=== PATIENT | male | born 1990 | race Caucasian/White ===

== ENCOUNTER 2018-06-26 12:10 | Inpatient (IN) | payer OTHER ==
[~2018-06-26] VITALS: Ht 167.6 cm; Wt 99.8 kg
--- NOTE | 2018-06-26 15:25 | NUR ---
Pre-Admission assessment Pre-admission assessment performed in the intake department of [facility] [place]. Pt is intoxicated. He is in a wheelchair due to right foot injury and intoxication. He has difficulty answering questions. Pt is disheveled with slurred speech, drooping eyelids, and difficulty sitting still. Dr. Marie in intake department during assessment. Vitals are: B/P 133/92, HR 86, RR 18, O2 sat 98%. Pt transferred to ED for evaluation due to intoxication.
[2018-06-26] MEDS ORDERED: ALPR1TAB7 PO (16:08)
[2018-06-26] MEDS ORDERED: BUPR100T5 PO (16:08)
[2018-06-26] MEDS ORDERED: QUET200T PO (16:08)
--- NOTE | 2018-06-26 20:15 | NUR ---
PRE ADMISSION ASSESSMENT Pt is a 27 y/o male seen at intake, pt arrived from the ED. Pt received K-Dur and EKG during his visit and is now able to answer questions and is A&Ox4. EKG resulted normal, made aware. Pt is here for ETOH, methamphetamine and Xanax. Pt reports drinking 1/2 gallon of vodka daily for 1.5 months, last intake of 1/2 gallon on 06/24/18. Pt also uses methamphetamine orally (in soda or in food) 2.5-3 g daily for 1.5 months, last intake 06/25/18 in the evening. Pt also uses Xanax as prescribed 2 mg TID daily for 2 years, last intake of 2 mg this morning. Pt reports that sometimes he does not use it daily if he does not have money for the prescription. Pt reports PMH of anxiety and depression and NKA. 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 Pt is currently in a wheelchair d/t pain while walking on right foot d/t injury from a fall 4 days prior to admission. Vital signs: BP 129/84, HR 89, 02 97%, T 98.4, Pain 0/10 (9/10 when walking), and RR 18.
--- NOTE | 2018-06-26 20:37 | NUR ---
ADMISSION NOTE Pt arrived on the unit at 2036 for medically supervised withdrawal from ETOH and benzos. Pt was also using methamphetamine orally. Skin and body check completed, no contraband found. Pt has opened laceration/blister on right heel that occurred due to a fall 4 days ago, photo taken and placed in the chart. Feet are bilaterally swollen. Pt is 56 and weighs 220 lbs. Pt provided UDS and blood draw. UDS positive for benzodiazepines and amphetamines. Blood alcohol level=0.0. Initial CIWA 15. Pt presents with anxiety, restlessness, sweats, flushed skin, poor concentration, and disheveled appearance. Pt prefers a wheelchair for ambulation d/t right foot injury, but can ambulate without one. Pt stated, I believe I can walk fine with just a cane. PT evaluation ordered. Pt has some rashes that are not itchy throughout body, pt stated, My skin typically gets like this when I use meth. PEERLA. Respirations even and unlabored, lung sounds clear. Pt reports last BM today. Vital signs: BP: 129/84, RR 18, HR 89, 02 97%, T 98.5, Pain 0/10 (9/10 when he walking d/t injury). Substance Use History: 1. ETOH (Vodka) gallon daily for 1.5 months, last intake of gallon on 06/24/18. Pt reports that he started drinking regularly since 2007. 2. Xanax 2 mg TID as prescribed for 2 years, last intake of 2 mg this morning. Pt reports that he has never used more than prescribed and that he may use it on and off when he cannot afford his prescription. Pt reports that he started using Xanax in 2015 for his anxiety. 3. Methamphetamine (oral) 2.5-3 g daily for 1.5 months, last intake of 3 grams orally in a soda on 06/25/18. Pt reports that he started drinking alcohol and using methamphetamine regularly since 2007 to self medicate the depression. Pt reports that he has not slept in 8 days. Pt reports that he has been to one treatment center, which was 2 months ago at [facility] and does not remember how long he was there for. Pt reports that he has had 5-6 attempts at sobriety and reports that his longest period of sobriety was 1 year in 2014. Pt reports that his typical S/S of withdrawal include the following: shakiness, twitching, sweats, irritability. He reports difficulty staying sober recently and stated, This girl I really liked stopped talking to me and she was my only friendThis put me into a depression and I just said fuck it and wanted to self medicate for my depression. Pt wants to get sober and states, I cant live like this anymoreI want to get my depression under control and I was living in the streets for 3 days and I dont want to be like this. Pt reports that he was staying at a sober living facility in [facility] prior to being homeless, but was using while at the sober house. Pt also reports that all his family members have blocked his number and currently ignore him. Pt reports having no friends and therefore no support system. Pt reports that relationship problems have been his biggest consequence for using. He reports that this time attempting sobriety will be different because he is hoping to take his treatment center more seriously. 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 Pt is full code, regular diet, NKA to food or meds, and on fall/seizure precautions. Pt reports PMH of anxiety, depression, insomnia, and kidney stones (Sep 2017). 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 Pt also has had multiple blackouts from ETOH and stated that he has had 1 OD from Heroin which was accidental and does not remember when. He reported that he has never used heroin on a regular basis and only tried it occasionally in the past. He brought Seroquel 200 mg for insomnia and Xanax from home. Educated pt that controlled substances will not be given back, pt verbalized understanding. Pt reports smoking 1 pack of cigarettes daily and currently does not have a desire to quit. Pt is not a candidate for MRSA, denies being hospitalized or in halfway in the past 30 days. Pt requests the flu and pneumonia vaccines. Pt denies having a PCP. Denies family PMH or hx of substance use. Encouraged pt to be open and honest in his recovery. Oriented pt to room and unit, educated pt about rules and expectations of the unit and how to use the call light.
[2018-06-26] MEDS ORDERED: DIAZEPAM 10 MG TABLET PO PRN (21:45)
[2018-06-26] MEDS ORDERED: THIAMINE HCL 200 MG/2 ML VIAL IM ONE (21:45)
[2018-06-26] MEDS ORDERED: ONDANSETRON ODT 4 MG TAB.RAPDIS SL PRN (21:45)
[2018-06-26] MEDS ORDERED: LORAZEPAM 2 MG/1 ML VIAL IM PRN (21:45)
[2018-06-26] MEDS ORDERED: LOPERAMIDE HCL 2 MG CAPSULE PO PRN ×2 (21:45)
[2018-06-26] MEDS ORDERED: DIAZEPAM 5 MG TABLET PO PRN (21:45)
[2018-06-26] MEDS ORDERED: ONDANSETRON 4 MG/2 ML VIAL IM PRN (21:45)
[2018-06-26 22:10] LABS: BASOPHILS % (AUTO) 0.2 % (0.0-2.0); EOSINOPHILS # (AUTO) 0.3 K/uL (0.0-0.7); EOSINOPHILS % (AUTO) 4.2 % (0.0-7.0); HEMATOCRIT 42.1 % (36.7-47.1); HEMOGLOBIN 14.4 g/dL (12.5-16.3); LYMPHOCYTES # (AUTO) 2.3 K/uL (20.0-40.0); LYMPHOCYTES % (AUTO) 29.3 % (20.5-51.5); MEAN CORPUSCULAR HEMOGLOBIN 31.3 uug (23.8-33.4); MEAN CORPUSCULAR HGB CONC 34 g/dL (32.5-36.3); MEAN CORPUSCULAR VOLUME 91.8 fL (73.0-96.2); MONOCYTES # (AUTO) 0.7 K/uL (2.0-10.0); MONOCYTES % (AUTO) 8.7 % (0.0-11.0); NEUTROPHILS # (AUTO) 4.5 K/uL (1.8-8.9); NEUTROPHILS % (AUTO) 57.6 % (38.5-71.5); PLATELET COUNT (AUTO) 333 K/uL (152-348); RED BLOOD CELL COUNT(AUTO) 4.59 MIL/uL (4.06-5.63); WHITE BLOOD COUNT (AUTO) 7.8 K/uL (3.6-10.2)
[2018-06-26] MEDS ORDERED: QUETIAPINE FUMARATE 200 MG TABLET PO ONE (22:30)
[2018-06-26 22:31] LABS: ETHANOL < 3 MG/DL (0-0)
[2018-06-26 23:01] LABS: THYROID STIMULATING HORMONE 1.571 mIU/mL (0.358-3.740)
[2018-06-26 23:11] LABS: ALANINE AMINOTRANSFERASE 126 U/L (16-63); ALKALINE PHOSPHATASE 59 U/L (50-136); AMYLASE 49 U/L (25-115); ASPARTATE AMINOTRANSFERASE 119 U/L (15-37); BILIRUBIN,TOTAL 0.6 mg/dL (0.2-1.0); CARBON DIOXIDE 26 mmol/L (21-32); CHLORIDE 101 mmol/L (98-107); CREATININE 0.9 mg/dL (0.6-1.3); GLUCOSE 135 mg/dL (74-106); LIPASE 264 U/L (73-393); MAGNESIUM 2.1 mg/dL (1.8-2.4); TOTAL PROTEIN, SERUM 7.2 g/dL (6.4-8.2); UREA NITROGEN, BLOOD 13 mg/dL (7-18)
--- NOTE | 2018-06-26 23:26 | NUR ---
PRN VALIUM 20 MG ADMINISTRATION CIWA 16. Pt presents with anxiety, severe restlessness, tremors, and disorientation to time. Safety measures in place. Call light within reach. Will continue to monitor.
[2018-06-26] MEDS: MULTIVITAMINS,THERAPEUTIC TABLET PO SCH (23:27)
[2018-06-26 23:29] LABS: *AMPHETAMINE, URINE POSITIVE (NEGATIVE); *BARBITURATE, URINE NEGATIVE (NEGATIVE); *CANNABINOID, URINE NEGATIVE (NEGATIVE); *COCCAINE, URINE NEGATIVE (NEGATIVE); *OPIATE, URINE NEGATIVE (NEGATIVE); *PHENCYCLIDINE SCREEN,URINE NEGATIVE (NEGATIVE)
[2018-06-27] VITALS (7 sets, daily range): BP systolic 119–148; BP diastolic 73–96
--- NOTE | 2018-06-27 | NUR ---
CIWA ASSESSMENT CIWA 14. Pt presents with anxiety, severe restlessness, and continues to have disorientation to time. Pt has improvement in anxiety. Safety measures in place. Call light within reach. Will continue to monitor.
[2018-06-27] MEDS ORDERED: POTASSIUM CHLORIDE 20 MEQ TAB.PRT.SR PO ONE ×2 (00:15→20:45)
--- NOTE | 2018-06-27 00:26 | NUR ---
PRN VALIUM REASSESSMENT CIWA 13. Pt presents with anxiety, severe restlessness, and continues to have disorientation to time. Pt has improvement in anxiety. Safety measures in place. Call light within reach. Will continue to monitor.
[2018-06-27] MEDS: DIAZEPAM 10 MG TABLET PO PRN ×2 (00:59→17:17)
--- NOTE | 2018-06-27 00:59 | NUR ---
PRN VALIUM 10 MG ADMINISTRATION CIWA 15. Pt presents with auditory hallucinations. Pt is mumbling and states, "I hear a miriam telling me random stuff and he is pushing on my neck." Pt also presents with restlessness and disorientation to time. Safety measures in place. Call light within reach. Will continue to monitor.
--- NOTE | 2018-06-27 01:00 | NUR ---
1:1 SITTER Pt now has 1:1 for safety d/t auditory hallucinations and severe restlessness.
[2018-06-27] MEDS: diphenhydrAMINE 50 MG CAPSULE PO PRN ×2 (01:59→23:39)
--- NOTE | 2018-06-27 01:59 | NUR ---
PRN VALIUM REASSESSMENT AND PRN BENADRYL ADMINISTRATION CIWA 13. Pt denies having auditory hallucinations. Pt continues to have restlessness and disorientation to time. Pt states, "I know I just need to sleep." Pt requests sleep aid. Safety measures in place. 1:1 sitter at bedside. Will continue to monitor.
--- NOTE | 2018-06-27 02:59 | NUR ---
MAGY MITCHELLRYL REASSESSMENT Pt remains awake, restless in bed. Pt is mumbling while tossing and turning in bed. Safety measures in place. 1:1 sitter at bedside. Will continue to monitor.
--- NOTE | 2018-06-27 04:00 | NUR ---
CIWA DEFERRED Pt laying in bed with eyes closed, CIWA deferred, to be assessed when pt is awake per orders. Respirations even and unlabored. Safety measures in place. 1:1 at bedside. Will continue to monitor.
--- NOTE | 2018-06-27 07:18 | NUR ---
END OF SHIFT Pt is a 27 y/o male admitted on 06/26/18 for ETOH and benzo withdrawal. Pt was also using methamphetamine daily. Pt was placed on a 5 day Valium taper to start today and had PRN Valium available. Pt presented with anxiety, restlessness, sweats, flushed skin, elevated HR, difficulty falling asleep, poor concentration, poor memory recall, poor eye contact, slumped posture, odorous, unkempt room, and disheveled appearance. Pt is on a 1:1 for safety. K+ 3.0, replaced with 40 meq K-Dur. Scheduled medications and PRN Valium 20 mg, Valium 10 mg, and Benadryl, effective in S/S of withdrawal AEB CIWA 16 lowered to CIWA 13 during shift. Pt slept 4 hours. Intake 1000 ml, void x 2, stool x 0. Safety measures in place. 1:1 sitter at bedside. Pts needs have been met. Endorsed to day shift nurse.
--- NOTE | 2018-06-27 07:25 | NUR ---
Start Of Shift Report received from manager shift nurse. Pt is a 27 y/o male admitted on 06/26/18 for ETOH and benzo withdrawal. Per manager shift nurse pt's last CIWA was 13. Pt is starting his 5 day Valium taper today. Upon start of shift pt noted laying in his bed with his eyes closed resting, breathing even and unlabored. When greeted pt stated " Im feeling terrible can I please have my morning medications so I can feel better". Pt's room appears unorganized and messy, pt has water, soda bottles and candy wraps thrown around the room, there is candy all over the floor. Pt appears anxious, sweaty and flushed. During assessment, pt is AOx3. Lung sounds clear bilaterally. Radial pulse is regular and non-bounding. Abdomen soft and non-tender. Pt has a Physical therapy evaluation today. Pt's skin is warm pt has a blister on his leg which makes it a little difficult to ambulate so pt uses wheelchair to ambulate around, pt is on a 1:1 with a WATCH MECHANIC for safety due to unsteady gait. Pt denies any pain at the moment. Encouraged pt to drink plenty of fluids to keep hydrated and help the detox process. Pt received PRN Valium 20mg and another Valium 10mg as well as a Benadryl 50mg for withdrawal symptoms and insomnia which were effective per manager shift nurse. Pt slept a total of 9 hours last night. Bed in lowest position. Side rails up x2. Call light functioning and within reach. All needs attended and met. Will continue to monitor.
[2018-06-27] MEDS ORDERED: INFLUENZA VACCINE 2018-2019 0.5 ML DISP.SYRIN IM ONE (09:00)
[2018-06-27] MEDS ORDERED: PNEUMOCOCCAL 23-VAL P-SAC VAC 0.5 ML VIAL IM ONE (09:00)
[2018-06-27] MEDS ORDERED: TUBERCULIN,PURIF.PROT.DERIV. 5 TU/0.1 ML TEST ID ONE (09:00)
[2018-06-27] MEDS ORDERED: 5 DAY TAPER VALIUM-SERENITY PROTOCOL PO PRN (09:00)
[2018-06-27] MEDS: MULTIVITAMINS,THERAPEUTIC TABLET PO SCH (09:57)
[2018-06-27] MEDS: DIAZEPAM 10 MG TABLET PO SCH ×3 (09:58→20:07)
[2018-06-27] MEDS: THIAMINE HCL 100 MG TABLET PO SCH (09:58)
[2018-06-27] MEDS: FOLIC ACID 1 MG TABLET PO SCH (09:58)
--- NOTE | 2018-06-27 12:00 | NUR ---
CIWA 14 Pt has diaphoresis, anxiety, yawning, and restlessness. Pt complains of chills runny nose and fatigue. Pt encouraged to drink more fluids to help with detox process. Will continue to monitor, support and encourage according to plan of care.
[2018-06-27 16:10] LABS: BILIRUBIN,TOTAL 0.3 mg/dL (0.2-1.0); CREATININE 0.8 mg/dL (0.6-1.3); POTASSIUM 3.3 mmol/L (3.5-5.1); TOTAL PROTEIN, SERUM 6.1 g/dL (6.4-8.2)
[2018-06-27] MEDS: CLONIDINE HCL 0.1 MG TABLET PO PRN ×2 (17:17→23:39)
[2018-06-27] MEDS: HYDROXYZINE PAMOATE 25 MG CAPSULE PO PRN ×2 (17:17→23:39)
--- NOTE | 2018-06-27 17:17 | NUR ---
PRN Pt c/o feeling anxious, and jittery, upon assessment pt had a CIWA score of 13 pt received PRN Valium 10mg per MD scale, clonidine0.1mg and Vistaril 50mg, will continue to monitor pt.
--- NOTE | 2018-06-27 18:17 | NUR ---
PRN reassessment Pt reported a decrease in anxiety and jitteriness, stated that his symptoms have subsided and that he is feeling much better than before, all needs met will continue to monitor and provide support.
--- NOTE | 2018-06-27 19:01 | NUR ---
End of shift Report given to night stocker nurse plan of care followed vital signs monitored closely Q4H. Withdrawal symptoms were closely monitored, medication given as scheduled. Initial CIWA 14. Pt encouraged adequate PO fluid intake as tolerated. Pt presented with sweats, flushed face, anxiety some agitation and yawning during the day. Pt received scheduled taper medication as ordered. Pt received PRN Clonidine 0.1mg Valium 10mg Vistaril 50mg for anxiety and withdrawal symptoms medications were effective. Last CIWA 13. Pt reported that the taper medications have been working well at controlling the withdrawal symptoms. Pt ate all of the meals, pt attended all groups and activities to learn new coping skills to prevent relapse. Pt denied any SI/HI. All safety measures in place, bed in lowest locked position, call light within reach. All needs met and attended.
--- NOTE | 2018-06-27 19:30 | NUR ---
Start of Shift Patient Received. Per endorsement, patient remains on 1:1 for safety. He continues on a 5 day Valium taper. Patient received PRN Vistaril and Clonidine with mediations noted to be effective. Potassium continues to be monitored. PT evaluation still pending. Last noted CIWA 13. Upon rounds patient is noted awake, alert and verbally responsive. Patient reports intermittent anxiety, agitation, increased sweats and chills, light sensitivity, and vivid dreams. Patient states I just want my Seroquel to go to bed. Explained to patient of routine medications with patient verbalizing understanding. All needs attended to promptly. Will continue plan of care as ordered.
[2018-06-27] MEDS: QUETIAPINE FUMARATE 200 MG TABLET PO SCH (20:06)
[2018-06-27] MEDS: IBUPROFEN 600 MG TABLET PO PRN (20:07)
--- NOTE | 2018-06-27 20:12 | NUR ---
CIWA Assessment/PRN Medication Administration patient is noted verbalizing increased pain to right ankle 5/10. PRN Motrin administered with routine medication. Patient is also noted with increased anxiety, restlessness, agitation, increased chills and sweats, light sensitivity, and tremulous to touch. Medications administered. Upon exiting the room patient was noted to verbalize "can I get my meds?" Reoriented patient and patient was noted to verbalize "oh ok." 1:1 remains. Will continue to monitor.
--- NOTE | 2018-06-27 21:15 | NUR ---
PRN medication Reassessment Patient is noted in bed with eyes closed. Breathing even and non labored. Patient received PRN Motrin for pain to right heel with medication noted to be effective. Will continue to monitor.
--- NOTE | 2018-06-27 23:00 | NUR ---
BEHAVIOR NOTE Per KNOT TIER, pt became upset, angry, agitated and stated " I don't want you in here! I can't fall asleep!" Pt came out of room, walked to nurses station and angrily stated " I don't want someone in my room, I can't fucking fall asleep with him in here! It's not cool!" KNOT TIER traffic personnel supervisor, primary nurse and charge nurse educated pt multiple times regarding reason for 1:1 sitter and concern for his safety. Pt stated " I'm fine! I can walk on my own! I just don't want anyone in here, and if you guys are going to put someone in here, I'll just leave." Pt was noted with steady gait. Pt denied any visual or auditory hallucinations. Will monitor closely.
--- NOTE | 2018-06-27 23:40 | NUR ---
PRN Medication Administration Patient is noted awake. He is noted with increased anxiety, agiation, verbalizing increased chills and sweats, restlessness, and inability of falling back to sleep. PRN Vistaril, Clonidine, and Benadryl. Will continue to monitor.
[2018-06-28 00:33] VITALS: BP 117/69
--- NOTE | 2018-06-28 00:39 | NUR ---
PRN Medication Reassessment Patient is noted in his room, upon entering room patient is verbally responsive and is noted to be easily agitated. Patient is able to verbalize "Im trying to fall asleep." PRN Clonidine, Vistaril and Benadryl noted not effective at the moment. Will continue to monitor.
[2018-06-28] MEDS ORDERED: DIAZEPAM 10 MG TABLET PO ONE (01:15)
--- NOTE | 2018-06-28 01:32 | NUR ---
PRN Medication Administration Patient noted to be very restless in bed, frequently shifting in bed, verbalizing intermittent chills and sweats, increased anxiety, and agitation. patient verbalizes "im so frustrated. i just feel miserable." CIWA noted to be 19. Relayed to CN and MD with one time dose of Valium 20mg. Will continue to monitor.
--- NOTE | 2018-06-28 02:30 | NUR ---
PRN Medication Reassessment Patient is noted in bed with eyes closed. Breathing even and non labored. No restlessness or discomfort noted. PRN Valium 20mg noted to be effective. Will continue to monitor.
[2018-06-28 04:30] VITALS: BP 122/83
--- NOTE | 2018-06-28 04:33 | NUR ---
CIWA Assessment patient noted awake, in the hallway, and requesting a drink from the snack room. He is noted to be easily agitated. requested for patient to put on a shirt and shoes and patient verbalized "you tell me that all the time. You dont need to tell me." During vitals patient was noted to easily fall back asleep. Will continue to monitor.
--- NOTE | 2018-06-28 07:09 | NUR ---
End of Shift Patient is noted in bed with eyes closed. Breathing even and non labored. Patient remains on 1:1 for safety. He continues on a 5 day Valium taper. Patient received PRN Clonidine, Vistaril, Benadryl, one time dose of Valium 20mg. Patient noted to sleep in intervals and noted to be non compliant with unit rules. KDUR 40 meq administered as per order. Potassium continues to be monitored. PT evaluation still pending. Last noted CIWA 8. No auditory or visual hallucinations noted or verbalized during shift. Patient noted to sleep a total of 5 hours. All needs attended to promptly. Will endorse to continue plan of care as ordered.
[2018-06-28 07:49] LABS: ALANINE AMINOTRANSFERASE 88 U/L (16-63); ALKALINE PHOSPHATASE 53 U/L (50-136); ASPARTATE AMINOTRANSFERASE 43 U/L (15-37); BILIRUBIN,TOTAL 0.2 mg/dL (0.2-1.0); CARBON DIOXIDE 26 mmol/L (21-32); CHLORIDE 107 mmol/L (98-107); CREATININE 0.7 mg/dL (0.6-1.3); GLUCOSE 135 mg/dL (74-106); MAGNESIUM 1.7 mg/dL (1.8-2.4); POTASSIUM 3.1 mmol/L (3.5-5.1); TOTAL PROTEIN, SERUM 6.2 g/dL (6.4-8.2); UREA NITROGEN, BLOOD 5 mg/dL (7-18)
[2018-06-28 08:00] VITALS: BP 149/98
--- NOTE | 2018-06-28 08:00 | NUR ---
START OF SHIFT CIWA ASSESSMENT Pt 27 y/o male admitted for etoh and benzo withdrawal. Pt received in room on bed with eyes closed resting, but arousable to name. Pt alert and oriented to name,place, and time. Perrla. Skin warm and moist to touch. Respirations even and unlabored. Appears disheveled and unkempt. Malodorous. Clothes, food wrappings, and empty drink bottles scattered throughout the room. Dirt under fingernails of both hands noted. Food observed on pt's shirt and pants. Encouraged to maintain hygiene. ciwa=12@0800. Anxious and restless. Pressured speech and fidgety. Irritable and agitated. Bilateral hand tremors noted. Complaints of general discomfort. Pt with 1:1 to monitor for safety. Last ciwa=8@2200. Pt is on a 5 day valium taper and is on day 2. Bed on lowest position with side rails x2 up for safety. Call light within reach.
[2018-06-28] MEDS: MULTIVITAMINS,THERAPEUTIC TABLET PO SCH (09:07)
[2018-06-28] MEDS: THIAMINE HCL 100 MG TABLET PO SCH (09:07)
[2018-06-28] MEDS: HYDROXYZINE PAMOATE 25 MG CAPSULE PO PRN ×3 (09:07→20:49)
[2018-06-28] MEDS: CLONIDINE HCL 0.1 MG TABLET PO PRN ×3 (09:07→20:49)
[2018-06-28] MEDS: DIAZEPAM 5 MG TABLET PO SCH ×4 (09:07→20:50)
[2018-06-28] MEDS: FOLIC ACID 1 MG TABLET PO SCH (09:07)
--- NOTE | 2018-06-28 09:10 | NUR ---
PRN CATAPRES VISTARIL Pt very anxious and restless. Catapres po prn per MD order given and tolerated well. Vistaril po prn per MD order given .
--- NOTE | 2018-06-28 10:10 | NUR ---
PRN CATAPRES VISTARIL EVAL Pt states medications effective for anxiety. Pt observed laying on bed in room.
--- NOTE | 2018-06-28 11:02 | NUR ---
therapist prompted client to attend group therapy.
[2018-06-28 12:00] VITALS: BP 138/88
--- NOTE | 2018-06-28 12:00 | NUR ---
CIWA ASSESSMENT ciwa=12. Anxious and restless. Pressured speech noted. Bilateral hand tremors noted. Irritable and agitated. Complaints of generalized discomfort.
[2018-06-28] MEDS ORDERED: MAGNESIUM OXIDE 400 MG TABLET PO ONE (12:15)
[2018-06-28] MEDS ORDERED: POTASSIUM CHLORIDE 20 MEQ TAB.PRT.SR PO ONE (12:15)
--- NOTE | 2018-06-28 14:38 | NUR ---
PRN IMMODIUM Pt with 1 episode of loose stool. Immodium po prn per MD order given and tolerated well.
--- NOTE | 2018-06-28 15:38 | NUR ---
PRN IMMODIUM Pt denies any loose stool episode.
[2018-06-28 16:00] VITALS: BP 148/95
--- NOTE | 2018-06-28 16:00 | NUR ---
CIWA ASSESSMENT ciwa=11. Bilateral hand tremors noted. Irritable and agitated. Anxious. Pressured speech noted. Complaints of generalized discomfort.
[2018-06-28] MEDS: BACLOFEN 10 MG TABLET PO SCH (16:15)
--- NOTE | 2018-06-28 16:21 | NUR ---
PRN CATAPRES VISTARIL Pt agitated. Raising voice at staff," I don't want anyone in my room unless it's with the nurse. You got that!? No one comes here without the doctor that can give me back my room. I want my room back now!". Catapres po prn per MD order given. Vistaril po prn per MD order given.
--- NOTE | 2018-06-28 18:21 | NUR ---
PRN CATAPRES VISTARIL EVAL Pt still with periods of irritability. Hard to redirect at times.
--- NOTE | 2018-06-28 18:36 | NUR ---
END OF SHIFT Pt 27 y/o male admitted for etoh and benzo withdrawal. Pt alert and oriented to name, place, and time. Perrla. Skin warm and moist to touch. Respirations even and unlabored. Appears disheveled and unkempt. Dirt under fingernails of both hands noted. Malodorous. Clothes, food wrappings and food, and empty drink bottles scattered throughout the room and floors. Encouraged to maintain hygiene. Anxious and restless. Pressured speech. Periods of irritability and agitation. Pt needed redirection a few times today.Not able to lay still. Complaints of generalized discomfort. Isolative to room with no peer interaction and with no motivation for self care. Pt did not attend group activity. Ciwa=11 @1600. Pt is a 5 day valium taper and is on day 2. Bed on lowest position with side rails x2 up for safety. Call light within reach.
--- NOTE | 2018-06-28 19:30 | NUR ---
START OF SHIFT Pt is a 27 y/o male admitted on 06/26/18 for benzo and ETOH withdrawal. Pt is a on 5 day Ativan taper, tolerating well. Last CIWA 11. PRN Clonidine, Vistaril, and Imodium was administered during day shift. Upon assessment Pt presents with anxiety, agitation, body aches, tremors, and difficulty falling and staying asleep. Medications due. Safety measures in place. Call light within reach. Will continue to monitor.
[2018-06-28 20:00] VITALS: BP 106/53
--- NOTE | 2018-06-28 20:00 | NUR ---
CIWA 11 Pt presented with anxiety, agitation, tremors, flat affect, and difficulty falling and staying asleep. Safety measures in place. Call light within reach. Will continue to monitor.
[2018-06-28] MEDS: diphenhydrAMINE 50 MG CAPSULE PO PRN (20:49)
--- NOTE | 2018-06-28 20:49 | NUR ---
PRN BENADRYL, CLONIDINE, AND VISTARIL ADMINISTRATION Pt complains of anxiety, agitation, tremors, and difficulty falling and stay asleep. Pt requested PRN medications. PRN medications were administered per order. Safety measures in place. Call light within reach. Will continue to monitor.
[2018-06-28] MEDS: QUETIAPINE FUMARATE 200 MG TABLET PO SCH (20:50)
--- NOTE | 2018-06-28 21:49 | NUR ---
MAGY BENADRYL, CLONIDINE, AND VISTARIL REASSESSMENT Addendum: 06/28/18 at 2227 by GAURI SERRANO RN Pt verbalized a decrease in his anxiety, agitation, and tremors. Pt also stated that he feels very sleepy. Medications noted effective per Pt. Safety measures in place. Call light within reach. Will continue to monitor.
--- NOTE | 2018-06-29 04:00 | NUR ---
CIWA DEFERRED AND VITAL SIGNS REFUSED Patient is noted in bed with eyes closed. Breathing even and non labored. CIWA and vital signs not able to be completed per order. Safety measures in place. Call light within reach. Will continue to monitor.
--- NOTE | 2018-06-29 07:29 | NUR ---
END OF SHIFT Pt is a 27 y/o male admitted on 06/26/18 for benzo and ETOH withdrawal. Pt to continue a 5 day Ativan taper. Pt presented with anxiety, agitation, body aches, tremors, and difficulty falling and staying asleep. PRN Benadryl, Clonidine, and Vistaril administered, effective in S/S of withdrawal as verbalized by Pt. Last CIWA 11. Pt slept 9 hours. Intake 855 ml, void x 3, stool x 0. Safety measures in place. Call light within reach. Pt's needs have been met. Endorsed to day shift.
[2018-06-29 08:00] VITALS: BP 143/101
[2018-06-29] MEDS: FOLIC ACID 1 MG TABLET PO SCH (08:01)
[2018-06-29] MEDS: MULTIVITAMINS,THERAPEUTIC TABLET PO SCH (08:01)
[2018-06-29] MEDS: DIAZEPAM 5 MG TABLET PO SCH ×3 (08:01→20:38)
[2018-06-29] MEDS: BACLOFEN 10 MG TABLET PO SCH ×3 (08:01→16:35)
[2018-06-29] MEDS: CLONIDINE HCL 0.1 MG TABLET PO PRN ×2 (08:01→20:39)
[2018-06-29] MEDS: THIAMINE HCL 100 MG TABLET PO SCH (08:01)
--- NOTE | 2018-06-29 08:05 | NUR ---
START OF SHIFT: Received Pt. A/O X 4. He is disheveled and odorous. He states he feels anxious,restless and irritable. Valium taper in progress to manage s/s of w/d. CIWA 10. BP 143/101 P 108. PRN Clonidine given for elevated BP. Will monitor effectiveness of PRN. Encouraged increased fluids to assist in facilitating detox process. Encouraged group attendance to improve coping skills and prevent relapse.Will continue to monitor and offer support.
[2018-06-29 09:00] VITALS: BP 141/96
--- NOTE | 2018-06-29 09:45 | NUR ---
Therapist prompted client to attend group therapy.
[2018-06-29] MEDS ORDERED: MAGNESIUM OXIDE 400 MG TABLET PO ONE (11:00)
[2018-06-29] MEDS ORDERED: POTASSIUM CHLORIDE 20 MEQ TAB.PRT.SR PO ONE (11:00)
[2018-06-29 12:00] VITALS: BP 144/94
[2018-06-29] MEDS: GABAPENTIN 300 MG CAPSULE PO SCH ×2 (12:17→16:35)
--- NOTE | 2018-06-29 12:30 | NUR ---
CIWA 7 he reports anxiety,restlessness and irritability
[2018-06-29 16:00] VITALS: BP 131/95
--- NOTE | 2018-06-29 19:14 | NUR ---
END OF SHIFT: Pt continues on Valium taper to manage s/s of w/d which include anxiety,restlessness,irritability and agitation.Last CIWA 10. He was compliant with treatment plan. He eats 100% of meals and was compliant with increased fluids. He interacts with peers and attended groups. Will pass shift report to oncoming night nurse.
--- NOTE | 2018-06-29 19:41 | NUR ---
START OF SHIFT NOTE Rcvd report from outgoing nurse. Pt is a 27 y/o male A/O to person, place, time, and purpose. Pt was admitted for medically supervised withdrawal from ETOH and Benzodiazepines. Pt is on day 3of a 5 day Valium taper. Pt has been presenting w/ anxiety, agitation, emotional volatility, irritability, sweats, unkempt and disheveled appearance, and malodorous. Pt rcvd no PRN medications during previous shift. Last CIWA 10 @ 1600. Call light is within reach. Pt will continue to be monitored and needs met.
[2018-06-29 20:01] VITALS: BP 147/101
--- NOTE | 2018-06-29 20:01 | NUR ---
CIWA ASSESSMENT CIWA 16. Pt has been presenting w/ anxiety, agitation, emotional volatility, irritability, sweats, unkempt and disheveled appearance, and malodorous. V/S; T:98.1, P:101, RR:18, SPO2:99, BP:147/101.
[2018-06-29] MEDS: QUETIAPINE FUMARATE 200 MG TABLET PO SCH (20:38)
[2018-06-29] MEDS: diphenhydrAMINE 50 MG CAPSULE PO PRN (20:38)
[2018-06-29] MEDS: HYDROXYZINE PAMOATE 25 MG CAPSULE PO PRN (20:38)
--- NOTE | 2018-06-29 20:38 | NUR ---
PRN BENADRYL, CLONIDINE, AND VISTARIL ADMINISTRATION Benadryl 50mg for sleep, Clonidine 0.1mg and Vistaril 50mg for anxiety were given. Will reassess pt in 1 hr.
--- NOTE | 2018-06-29 21:38 | NUR ---
PRN BENADRYL, CLONIDINE, AND VISTARIL REASSESSMENT Pt states he still can't fall asleep and he still feels awful. Pt appears anxious and agitated. Educated pt on relaxation techniques such as deep breathing, turning off the lights, putting on music, and using imagery. Pt stated he would try. Will continue to monitor pt.
--- NOTE | 2018-06-29 23:30 | NUR ---
NURSING NOTE Pt has been exhibiting med-seeking and manipulative behavior. Pt has also become verbally aggressive towards staff, using profanity and making verbal threats. Pt is requesting an increase to his scheduled tapers. Pt was educated regarding appropriate behvaior and the medication regimen by Primary RN, teletypewriter operator, and [employer] Acls Nurse. Pt's scheduled and PRN medications were administered, however, pt continued to request more sleeping medications even though Seroquel 200mg was given. Pt remained argumentative stating "I dont' want to have to break character and go to an evil place" in an attempt to achieve more medication. Pt given continuous education on nonpharmacological relaxation and sleep methods.
--- NOTE | 2018-06-30 00:05 | NUR ---
CIWA ASSESSMENT CIWA 16. . Pt has been presenting w/ anxiety, agitation, emotional volatility, irritability, insomnia, sweats, unkempt and disheveled appearance, and malodorous. Pt refused V/S.
--- NOTE | 2018-06-30 04:10 | NUR ---
CIWA DEFERRED Pt is in bed w/ his eyes closed. Pt's respirations are unlabored and even.
--- NOTE | 2018-06-30 07:21 | NUR ---
END OF SHIFT NOTE Endorsed pt to oncoming nurse. Pt is a 27 y/o male A/O to person, place, time, and purpose. Pt was admitted for medically supervised withdrawal from ETOH and Benzodiazepines. Pt completed day 3 of a 5 day Valium taper. Pt continued presenting w/ anxiety, agitation, emotional volatility, irritability, insomnia, sweats, unkempt and disheveled appearance, and is malodorous. Pt denies any S/I or H/I. PRN Benadryl for sleep, Clonidine and Vistaril for anxiety were given and noted ineffective. Pts fluid intake was 1182ml and he slept for 6hrs. Last CIWA 16 @ 0000. Call light is within reach.
--- NOTE | 2018-06-30 07:45 | NUR ---
Start of shift Pt is 27 y/o male admitted for medically supervise withdrawal of ETOH. Pt is on 5 day Valium taper. Today is day 4. Last CIWA at 2400 was 16. Pt slept 5 hours. Pt first seen in bed laying left lateral. Respirations even an unlabored. Pt arousable with voice. Pt c/o anxiety, sweats/chills, fidgeting, restlessness and mild nausea. Declines Zofran at this time. Encouraged pt ot participate in group therapy sessions today to identify positive coping skills to maintain sobriety. All safety measures in place, bed locked/low position. Pt Full Code and report NKA. Will continue to monitor for withdrawal symptoms.
[2018-06-30 08:03] VITALS: BP 138/98
[2018-06-30] MEDS: DIAZEPAM 5 MG TABLET PO SCH ×2 (08:13→21:37)
[2018-06-30] MEDS: GABAPENTIN 300 MG CAPSULE PO SCH ×3 (08:13→17:32)
[2018-06-30] MEDS: THIAMINE HCL 100 MG TABLET PO SCH (08:13)
[2018-06-30] MEDS: MULTIVITAMINS,THERAPEUTIC TABLET PO SCH (08:13)
[2018-06-30] MEDS: BACLOFEN 10 MG TABLET PO SCH ×3 (08:13→17:32)
[2018-06-30] MEDS: FOLIC ACID 1 MG TABLET PO SCH (08:13)
--- NOTE | 2018-06-30 08:24 | NUR ---
CIWA 15- Pt c/o anxiety, sweats/chills, fidgeting, restlessness and mild nausea. HR slightly elevated. Pt on day 4 of Valium taper.
[2018-06-30] MEDS: CLONIDINE HCL 0.1 MG TABLET PO PRN ×2 (09:36→15:49)
[2018-06-30] MEDS: IBUPROFEN 600 MG TABLET PO PRN ×2 (09:37→17:34)
--- NOTE | 2018-06-30 09:37 | NUR ---
PRN- CLONIDINE 0.1 MG PO FOR MODERATE ANXIETY. PRN IBUPROFEN 600 MG PO FOR HEADACHE #02/20 Addendum: 06/30/18 at 0949 by Ashly De La O RN Pt is labile, emotionally upset he didn't sleep well last night, and has depressed mood. He is irritable and very disorganized. Room is cluttered with wrappers, empty water bottles, clothes and used linens on the floor.
--- NOTE | 2018-06-30 10:40 | NUR ---
Reassess Clonidine- Pt reports anxiety improved. He still pacing halls and goes to [employer] for fresh air. Pt reports he will attend group therapy session at 11:00. Reassess Ibuprofen- Pt report headache improved, now #3/.
[2018-06-30 12:00] VITALS: BP 134/92
--- NOTE | 2018-06-30 12:10 | NUR ---
CIWA 12- moderate anxiety, sweats/chills, fidgeting, He is irritable and very disorganized and restlessness. Pt is labile, and has depressed mood and flat affect.
[2018-06-30] MEDS: HYDROXYZINE PAMOATE 25 MG CAPSULE PO PRN (15:48)
--- NOTE | 2018-06-30 15:50 | NUR ---
PRN Vistaril 50mg PO and Clonidine 0.1mg PO given for increased agitation and irritability
[2018-06-30 16:00] VITALS: BP 129/77
--- NOTE | 2018-06-30 16:50 | NUR ---
Reassess Vistaril and Clonidine- Pt less anxious and irritable, he was able to calm down, attend group therapy session
--- NOTE | 2018-06-30 18:00 | NUR ---
PRN Ibuprofen 600 m PO for headache #6/10
--- NOTE | 2018-06-30 18:31 | NUR ---
End of shift Pt is 27 y/o male admitted for medically supervise withdrawal of ETOH. Pt is on 5 day Valium taper. Today is day 4. Last CIWA 13 at 1600. PRN given today- Ibuprofen, Vistaril, and Clonidine. Pt c/o moderate anxiety, sweats/chills, fidgeting, and restlessness. Pt is labile, irritable and very disorganized. Encouraged pt to participate in group therapy sessions today to identify positive coping skills to maintain sobriety. Pt attend all three group therapy sessions today. PO fluids 1500 ml, voids X4, BMx2. All safety measures in place, bed locked/low position. Pt Full Code and report NKA. Will continue to monitor for withdrawal symptoms.
--- NOTE | 2018-06-30 19:30 | NUR ---
Start of shift note Patient is a 27 year old male, admitted on 06/26/2018 for medically supervised ETOH and Benzo withdrawal. Patient is on a 5 day Valium taper started on 06/27/2018. Patient is on fall and seizure precaution. Per endorsement patient had PRN Vistaril, Clonidine, and ibuprofen. Patients last CIWA was 13. Upon rounds patient was noted in room, reviewed plan of care and he verbalized understanding. Patient verbalized he showered and went to group during day shift. Patient denies any diarrhea episodes. Patient seems anxious and agitated, with mild sweats. Safety measures in place, bed locked in lowest position, side rails up x2, and call light within reach. Will continue to monitor.
[2018-06-30 20:00] VITALS: BP 135/91
--- NOTE | 2018-06-30 20:00 | NUR ---
CIWA Assessment Patient is presenting with anxiety, agitation, stuffy nose, sweats and tremors. Patients CIWA is 20. Safety measures in place and will continue to monitor.
[2018-06-30] MEDS ORDERED: MIRTAZAPINE 15 MG TABLET PO SCH (21:00)
[2018-06-30] MEDS: QUETIAPINE FUMARATE 200 MG TABLET PO SCH (21:36)
--- NOTE | 2018-06-30 22:00 | NUR ---
Behavioral note During medication administration patient was being very reluctant to take the medication and he stated "that shit doesn't do shit for me", referring to the Valium dose of 5mg. Patient seemed upset because he said "I am not here to withdrawal from Xanax, only ETOH and meth." Patient education and reassurance was given to patient, patient continue to present with agitation and verbalized having thoughts of harming others including the doctor, pt stated "I'm going to show him the [place] life; I really just want to act out and get violent like hit somebody or a wall." Despite continue calming methods pt verbalized wanting to leave AMA; pt stated "I would moe somebody to get dope and go back to [facility], I don't care if i go to [facility]." Charge nurse, , and crisis team notified. Crisis team stated there is no criteria for a hold. Ultimately patient decided to stay and take his schedule medications.
[2018-07-01] VITALS (7 sets, daily range): BP systolic 124–168; BP diastolic 82–121
--- NOTE | 2018-07-01 07:30 | NUR ---
Start of shift Pt is 27 y/o male admitted for medically supervise withdrawal of ETOH. Pt is on 5 day Valium taper. Today is day 5. Last CIWA 20 at 1999. Pt c/o moderate anxiety, sweats/chills, fidgeting, and restlessness. Pt is labile, irritable and very disorganized. Room was cluttered with dirty lines and clothes on the floor, malodorous and empty bottles on his tray. Encouraged Pt to take a shower this AM. Encouraged pt to participate in group therapy sessions today to identify positive coping skills to maintain sobriety. Pt attend all three group therapy sessions today. All safety measures in place, bed locked/low position. Pt Full Code and report NKA. Will continue to monitor for withdrawal symptoms.
--- NOTE | 2018-07-01 07:30 | NUR ---
End of shift note Patient is a 27 year old male, admitted on 06/26/2018 for medically supervised ETOH and Benzo withdrawal. Patient is on a 5 day Valium taper started on 06/27/2018. Patient is on fall and seizure precaution. Patient did not have any PRN medications during this shift. Patients last CIWA was 20. Patient was very agitated and anxious; patients threaten to leave AMA during this shift and made verbal statements of hurting and snapping at staff. Patient was provided with calming and reassurance and he took medication and stayed and crisis team was notified. Crisis team stated there was no need for a hold. Patient slept for 8 hours and had a total intake of 1,092ml. Patient voided x2 and had no bowel movements during this shift. Safety measures in place, bed locked in lowest position, side rails up x2, and call light within reach. Will endorse to day shift.
--- NOTE | 2018-07-01 08:03 | NUR ---
CIWA 16- Pt c/o mild nausea, sweats/chills, fine tremors, moderate anxiety, irritable, restlessness. Pt is labile, has flat affect and depressed mood. Pt is taking shower at this time. Will administer Valium taper and PRN's as ordered.
[2018-07-01] MEDS ORDERED: DIAZEPAM 5 MG TABLET PO SCH (09:00)
[2018-07-01] MEDS: GABAPENTIN 300 MG CAPSULE PO SCH ×3 (09:04→17:07)
[2018-07-01] MEDS: BACLOFEN 10 MG TABLET PO SCH ×4 (09:04→17:07)
[2018-07-01] MEDS: FOLIC ACID 1 MG TABLET PO SCH (09:04)
[2018-07-01] MEDS: MULTIVITAMINS,THERAPEUTIC TABLET PO SCH (09:04)
[2018-07-01] MEDS: THIAMINE HCL 100 MG TABLET PO SCH (09:04)
--- NOTE | 2018-07-01 09:07 | NUR ---
PRN Zofran 4 mg SL for nausea, no emesis. Pt ate minimal breakfast.
[2018-07-01] MEDS: IBUPROFEN 600 MG TABLET PO PRN ×2 (09:23→20:17)
--- NOTE | 2018-07-01 09:24 | NUR ---
PRN Ibuprofen 600 mg PO for headache #6/10
--- NOTE | 2018-07-01 10:07 | NUR ---
Reassess Zofran- Pt reports nausea gone. Reassess Ibuprofen- Pt reports headache now #10/21
[2018-07-01] MEDS: CLONIDINE HCL 0.1 MG TABLET PO PRN (12:07)
--- NOTE | 2018-07-01 12:08 | NUR ---
PRN Clonidine 0.1 mg PO for anxiety and elevated BP 161/121.
--- NOTE | 2018-07-01 12:16 | NUR ---
[facility] 16- Pt c/o headache, fatigue, difficulty concentrating, sweats/chills, fine tremors, moderate anxiety, irritable, restlessness. Pt is labile at times, has flat affect and depressed mood. Pt attended group therapy session this morning.
[2018-07-01] MEDS ORDERED: CLON0.1T14 PO (12:46)
[2018-07-01] MEDS ORDERED: QUET200T PO ×2 (12:46)
[2018-07-01] MEDS ORDERED: GABA-534 PO (12:46)
[2018-07-01] MEDS ORDERED: MIRT15TA7 PO (12:46)
[2018-07-01] MEDS ORDERED: HYDR-3895 PO (12:46)
[2018-07-01] MEDS ORDERED: BACL10TA PO (12:46)
--- NOTE | 2018-07-01 13:10 | NUR ---
Reassess clonidine- Pt bp improved 148/98. Pt reports anxiety improved. He is nervous for discharge tomorrow.
--- NOTE | 2018-07-01 13:57 | NUR ---
Therapist prompted client to attend all group therapy sessions.
--- NOTE | 2018-07-01 16:15 | NUR ---
[facility] 11- Pt c/o anxiety, nervous about discharge tomorrow, fatigue, difficulty concentrating, fine tremors, restlessness. Pt has flat affect and depressed mood. Pt attended three group therapy session this today. Valium taper completed.
[2018-07-01] MEDS: HYDROXYZINE PAMOATE 25 MG CAPSULE PO PRN (17:07)
--- NOTE | 2018-07-01 17:10 | NUR ---
PRN Vistaril 50 mg PO for anxiety. Pt acting out, yelling at staff, used profanity towards staff. Pt wants a stronger anxiety medication and upset his Valium taper is over. Pt nervous about discharge tomorrow.
--- NOTE | 2018-07-01 18:10 | NUR ---
Reassess Vistaril- Pt reports he is slightly less anxious. He is in his room watching TV.
--- NOTE | 2018-07-01 18:49 | NUR ---
End of shift Pt is 27 y/o male admitted for medically supervise withdrawal of ETOH. Pt completed 5 day Valium taper. He is scheduled for discharge tomorrow to [facility]. Last CIWA 11 at 1600. PRN given today- Zofran, Ibuprofen, Vistaril and Clonidine. Today Pt c/o anxiety and restlessness. He is nervous for discharge. Encouraged pt to participate in group therapy sessions today to identify positive coping skills to maintain sobriety. Pt did attend all three group therapy sessions today. PO fluids 2000 ml, voids x3, BMx2. All safety measures in place, bed locked/low position. Pt Full Code and report NKA. Will continue to monitor for withdrawal symptoms. Addendum: 07/01/18 at 1851 by Ashly De La O RN Pt continues to be labile, posturing at staff, requesting Thorazine and more Valium. States, "I'm going to get psychotic on you if I don't get medication."
--- NOTE | 2018-07-01 19:00 | NUR ---
Psychiatrist Communication: Pt noted with very severe anxiety/agitation. Pt requested medication to help him calm down. Pt stated that he is willing to get non-narcotic medication. Psychiatrist made aware with new order for 5mg Zyprexa Zydis PO ONE TIME. New order noted and carried out.
[2018-07-01] MEDS ORDERED: OLANZAPINE ZYDIS 5 MG TAB.RAPDIS PO ONE (19:15)
--- NOTE | 2018-07-01 19:30 | NUR ---
START OF SHIFT Pt is 27 y/o male admitted for ETOH withdrawal. Pt has completed 5 day Valium taper and is scheduled for discharge tomorrow to [facility]. Last CIWA 11 at 1600. PRN given per day shift :- Zofran, Ibuprofen, Vistaril and Clonidine. Pt presented with anxiety and restlessness,stated I had a bad day,unwilling to discuss in detail. All safety measures are in place,call light is within reach,Will continue to monitor for safety.
[2018-07-01] MEDS: QUETIAPINE FUMARATE 200 MG TABLET PO SCH (20:16)
--- NOTE | 2018-07-01 20:17 | NUR ---
PRN Motrin 600 mg PO given for c/o headache,pain level is 6/10,will continue to monitor
[2018-07-01] MEDS ORDERED: MIRTAZAPINE 15 MG TABLET PO SCH (21:00)
--- NOTE | 2018-07-01 21:15 | NUR ---
PRN MOTRIN IS EFFECTIVE.HEADACHE RELIEVED.
--- NOTE | 2018-07-02 | NUR ---
CIWA DEFERRED Pt is sleeping comfortably in his bed; breathing is even and non labored; no s/s of distress noted;ciwa deferred due to pt beig asleep; v/s refused; will continue to monitor.
--- NOTE | 2018-07-02 06:35 | NUR ---
END OF SHIFT Pt is 27 y/o male admitted for ETOH withdrawal. Pt has completed 5 day Valium taper and is scheduled for discharge today to [facility]. Last CIWA 11 at 1999. PRN Motrin was given last night and was effective.Pt slept 7 hours,fluid intake was 1208 ml,voided x 3,no b/m reported. All safety measures are in place,call light is within reach,Will continue to monitor for safety.
--- NOTE | 2018-07-02 07:46 | NUR ---
START OF SHIFT Pt is a 27 yr old male, AA&Ox4. Pt was admitted on 06/26/18 for ETOH withdrawal and 5 day Valium taper as ordered. Received report from night shift supervisor nurse. Pt was given Motrin PRN during the night. Medication was effective. Pt slept for 7 hrs. Last CIWA score was 11. Pt is observed with anxiety m/b difficulty staying still. Pt states, "I feel fine". Pt is to be discharged today to [facility]. Will continue to f/u. Skin is intact, warm and moist to touch. Pt was encouraged increase fluid intake. Safety precautions observed. Call light is within reach. Will continue to monitor.
[2018-07-02 08:00] VITALS: BP 148/92
[2018-07-02] MEDS: THIAMINE HCL 100 MG TABLET PO SCH (08:47)
[2018-07-02] MEDS: BACLOFEN 10 MG TABLET PO SCH (08:47)
[2018-07-02] MEDS: GABAPENTIN 300 MG CAPSULE PO SCH (08:47)
[2018-07-02] MEDS: FOLIC ACID 1 MG TABLET PO SCH (08:47)
[2018-07-02] MEDS: MULTIVITAMINS,THERAPEUTIC TABLET PO SCH (08:47)
--- NOTE | 2018-07-02 10:00 | NUR ---
DISCHARGE NOTE Pt is a 27 yr old male, AA&OX4. Pt was admitted on 06/26/18 for ETOH withdrawal and completed a 5 day Valium taper as ordered. Pt was cooperative with medication regimen. Pt was c/o anxiety due to discharged but was able to cope with anxiety level. Pt was educated on discharged summary and prescriptions. Pt was able to verbalize understanding. Pt was discharged off the unit at 0946 in stable condition. Pt was discharged to [facility]. Pt left with all belongings and valuables.
== END 2018-07-02 09:46 | disposition other institution (70) | DRG 895 ==
LOC: SRC 15:30
PROVIDERS: ADMIT Family Medicine Addiction Medicine; ATTEND Family Medicine Addiction Medicine
PROC: HZ2ZZZZ Detoxification Services for Substance Abuse Treatment (ICD-10-PCS; principal; 2018-06-26)
PROC: HZ41ZZZ Group Counseling for Substance Abuse Treatment, Behavioral (ICD-10-PCS; 2018-06-29)
PROC: HZ31ZZZ Individual Counseling for Substance Abuse Treatment, Behavioral (ICD-10-PCS; 2018-06-29)
DX: F10.230 Alcohol dependence with withdrawal, uncomplicated (principal); F13.230 Sedative, hypnotic or anxiolytic dependence with withdrawal, uncomplicated; Y90.0 Blood alcohol level of less than 20 mg/100 ml; F15.23 Other stimulant dependence with withdrawal; F17.210 Nicotine dependence, cigarettes, uncomplicated; G47.00 Insomnia, unspecified; F41.1 Generalized anxiety disorder; N20.0 Calculus of kidney; Z59.0 Homelessness; F32.9 Major depressive disorder, single episode, unspecified; Z76.5 Malingerer [conscious simulation]
CPT/HCPCS: 36415; 70030-TC; 80307; 80324; 80346; 83690; 83735; 84443; 85025; 86592; 86705; 86803; 87340; 87806; 90686; 90732; G0480; Q0162; Q0163

== ENCOUNTER 2018-06-26 15:34 | Emergency (ER) | payer OTHER ==
[~2018-06-26] VITALS: Ht 170.2 cm; Wt 86.2 kg
[2018-06-26] MEDS ORDERED: BUPR100T5 PO (16:08)
[2018-06-26] MEDS ORDERED: ALPR1TAB7 PO (16:08)
[2018-06-26] MEDS ORDERED: QUET200T PO (16:08)
[2018-06-26 16:10] LABS: BASOPHILS # (AUTO) 0.1 K/uL (0.0-8.0); BASOPHILS % (AUTO) 0.7 % (0.0-2.0); EOSINOPHILS # (AUTO) 0.2 K/uL (0.0-0.7); EOSINOPHILS % (AUTO) 2.8 % (0.0-7.0); HEMATOCRIT 40.6 % (36.7-47.1); LYMPHOCYTES # (AUTO) 2.3 K/uL (20.0-40.0); LYMPHOCYTES % (AUTO) 28.5 % (20.5-51.5); MEAN CORPUSCULAR HEMOGLOBIN 31.4 uug (23.8-33.4); MEAN CORPUSCULAR HGB CONC 34 g/dL (32.5-36.3); MEAN CORPUSCULAR VOLUME 91.1 fL (73.0-96.2); MONOCYTES # (AUTO) 0.6 K/uL (2.0-10.0); MONOCYTES % (AUTO) 7.1 % (0.0-11.0); NEUTROPHILS # (AUTO) 4.8 K/uL (1.8-8.9); NEUTROPHILS % (AUTO) 60.9 % (38.5-71.5); PLATELET COUNT (AUTO) 303 K/uL (152-348); RED BLOOD CELL COUNT(AUTO) 4.45 MIL/uL (4.06-5.63); WHITE BLOOD COUNT (AUTO) 7.9 K/uL (3.6-10.2)
[2018-06-26 16:17] LABS: CARBON DIOXIDE 29 mmol/L (21-32); CHLORIDE 102 mmol/L (98-107); CREATININE 0.9 mg/dL (0.6-1.3); GLUCOSE 138 mg/dL (74-106); UREA NITROGEN, BLOOD 14 mg/dL (7-18)
[2018-06-26 16:21] LABS: *BILIRUBIN,URIN NEGATIVE (NEGATIVE); *BLOOD, URINE NEGATIVE (NEGATIVE); *CLARITY,URINE CLEAR (CLEAR); *COLOR,URINE DARK YELLOW (YELLOW); *KETONES,URINE 1+ (NEGATIVE); *PROTEIN,URINE TRACE (NEGATIVE); LEUKOCYTE ESTERASE ,URINE NEGATIVE (NEGATIVE); NITRITE, URINE NEGATIVE (NEGATIVE); UGLUCOSE NEGATIVE (NEGATIVE)
[2018-06-26 16:22] LABS: POTASSIUM 2.6 mmol/L (3.5-5.1)
[2018-06-26 16:23] LABS: ALANINE AMINOTRANSFERASE 125 U/L (16-63); ALKALINE PHOSPHATASE 57 U/L (50-136); ASPARTATE AMINOTRANSFERASE 131 U/L (15-37); BILIRUBIN,DIRECT 0.3 mg/dL (0.0-0.2); TOTAL PROTEIN, SERUM 7.1 g/dL (6.4-8.2)
[2018-06-26 16:24] LABS: ACETAMINOPHEN < 2.0 ug/mL (10-30)
[2018-06-26 16:25] LABS: ETHANOL < 3 MG/DL (0-0)
[2018-06-26 16:29] LABS: BACTERIA,URINE NONE SEEN /HPF (NONE SEEN); RBC,URINE 0-3 /HPF (0-3); SQUAMOUS EPITHELIAL CELL,UR NONE SEEN /HPF (NONE SEEN); WBC,URINE 0-3 /HPF (0-3)
[2018-06-26 16:35] LABS: *AMPHETAMINE, URINE POSITIVE (NEGATIVE); *BARBITURATE, URINE NEGATIVE (NEGATIVE); *CANNABINOID, URINE NEGATIVE (NEGATIVE); *COCCAINE, URINE NEGATIVE (NEGATIVE); *OPIATE, URINE NEGATIVE (NEGATIVE); *PHENCYCLIDINE SCREEN,URINE NEGATIVE (NEGATIVE)
[2018-06-26] MEDS ORDERED: POTASSIUM CHLORIDE 20 MEQ TAB.PRT.SR PO ONE (16:45)
--- NOTE | 2018-06-26 18:00 | NUR ---
Pt is awake,alert and oriented. Pt is eating dinner, NAD noted. Per pt may be d/c to [facility] intake. [facility] notified.
--- NOTE | 2018-06-26 18:57 | NUR ---
Received telephone call from who requested we do an EKG and their intake staff will come eval the pt.
--- NOTE | 2018-06-26 19:52 | NUR ---
Patient discharged to home in stable conditon. Written and verbal after care instructions given. Patient verbalizes understanding of instructions.
--- NOTE | 2018-06-26 19:52 | NUR ---
pt was picked up by [facility] staff member. pt is awake, alert, oriented.
[2018-06-26 19:53] VITALS: BP 131/81
[2018-07-01] MEDS ORDERED: HYDR-3895 PO (12:46)
[2018-07-01] MEDS ORDERED: GABA-534 PO (12:46)
[2018-07-01] MEDS ORDERED: MIRT15TA7 PO (12:46)
[2018-07-01] MEDS ORDERED: BACL10TA PO (12:46)
[2018-07-01] MEDS ORDERED: QUET200T PO ×2 (12:46)
[2018-07-01] MEDS ORDERED: CLON0.1T14 PO (12:46)
== END 2018-06-26 19:54 | disposition home or self-care (01) ==
LOC: ER 15:39
DX: F19.90 Other psychoactive substance use, unspecified, uncomplicated (principal)
CPT/HCPCS: 36415; 80048; 80076; 80307; 81001; 83735; 85025; 93005 ×2; 99285; G0480 ×2; G0481; A4663